=== PATIENT | female | born 1995 ===

== ENCOUNTER 2021-07-29 16:05 | Outpatient (CLI) | payer OTHER | END 2021-07-29 17:51 | disposition home or self-care (01) | LOC: PRENATAL 16:05 | PROVIDERS: ATTEND Obstetrics & Gynecology Maternal & Fetal Medicine | DX: O35.0XX0 Maternal care for (suspected) central nervous system malformation in fetus, not applicable or unspecified (principal); O35.3XX0 Maternal care for (suspected) damage to fetus from viral disease in mother, not applicable or unspecified; O28.1 Abnormal biochemical finding on antenatal screening of mother; Z3A.19 19 weeks gestation of pregnancy ==

== ENCOUNTER 2021-10-29 14:51 | Outpatient (CLI) | payer OTHER | END 2021-10-29 16:34 | disposition home or self-care (01) | LOC: PRENATAL 14:51 | PROVIDERS: ATTEND Obstetrics & Gynecology Maternal & Fetal Medicine | DX: O26.849 Uterine size-date discrepancy, unspecified trimester (principal); O36.8199 Decreased fetal movements, unspecified trimester, other fetus; O28.1 Abnormal biochemical finding on antenatal screening of mother; Z3A.32 32 weeks gestation of pregnancy ==

== ENCOUNTER 2024-11-17 09:00 | Day surgery (SDC) | payer OTHER ==
[2024-11-14 11:41] LABS: URINE APPEARANCE Cloudy; URINE BILIRRUBIN Negative (NEGATIVE); URINE BLOOD Negative; URINE COLOR Yellow; URINE GLUCOSE Negative (NEGATIVE); URINE KETONE Negative (NEGATIVE); URINE LEUKOCYTE Large; URINE NITRATE Negative; URINE PROTEIN Negative (NEGATIVE); URINE UROBILINOGEN 0.2 E.U./dl
[2024-11-14 11:42] LABS: URINE BACTERIA 1654.6 uL (0.0-1933); URINE EPITHELIAL CELLS 156.9 uL (0.0-38.8); URINE RBC 24.7 uL (0.0-20.8); URINE WBC 128.7 uL (0.0-23.2)
[2024-11-14 11:46] LABS: URINE CAST 0.29 uL (0.0-1.40)
[2024-11-14 11:54] LABS: BASO % 0.9 % (0.1-1.2); EOS # 0.08 (0.04-0.54); EOS % 1.0 % (0.7-7.0); LYMPH # 2.08 (1.18-3.74); LYMPH % 26.5 % (19.3-53.1); MEAN PLATELET VOLUME 11.30 fl (9.4-12.4); MONO # 0.46 (0.24-0.82); MONO % 5.9 % (4.7-12.5); NEUT # 5.14 (1.56-6.13); NEUT % 65.4 % (34.0-71.1); RED CELL DISTRIBUTION WIDTH 12.2 % (11.6-14.4)
[2024-11-14 12:06] LABS: URINE YEAST FEW /hpf
[2024-11-14 12:19] LABS: INR 0.99
[2024-11-14 12:40] LABS: ALT/SGPT 19.0 U/L (12-78); AST/SGOT 12.0 U/L (15-37); BILIRUBIN TOTAL 0.34 mg/dL (0.3-1.2); BUN CREA RATIO 14.0 (7.0-25.0); CREATININE SERUM 0.76 mg/dL (0.55-1.02); GFR 89.97; GLOBULINA 4.4 G/DL (2.4-3.5); GLUCOSE FASTING 93.0 mg/dL (65-100); OSMOLALITY SERUM 284.0 MOSM/KG (275-295)
[2024-11-17] MEDS ORDERED: CEFAZOLIN SODIUM 1,000 MG VIAL ONE (14:08)
[2024-11-17] MEDS ORDERED: POVIDONE-IODINE 118 ML BOTT TOP ONE (18:57)
[2024-11-17] MEDS ORDERED: MORPHINE SULFATE 4 MG/ML CARTRIDGE IV PRN (20:00)
[2024-11-17] MEDS ORDERED: KETOROLAC TROMETHAMINE 30 MG VIAL IV ONE (20:00)
[2024-11-17] MEDS ORDERED: RINGERS SOLUTION,LACTATED 1,000 ML IV SCH (20:00)
[2024-11-17] MEDS ORDERED: ONDANSETRON HCL 2 MG/ML VIAL IV PRN (20:00)
[2024-11-17] MEDS ORDERED: FAMOTIDINE/PF 20 MG/2 ML VIAL IV ONE (20:00)
== END 2024-11-17 22:25 | disposition home or self-care (01) ==
LOC: CIR.AMB 09:00
PROVIDERS: ATTEND General Practice
DX: Z30.2 Encounter for sterilization (principal)